=== PATIENT | female | born 1970 | race Caucasian/White ===

== ENCOUNTER → 2020-04-20 16:15 | Outpatient (CLI) | payer SELFPAY ==
[2015-08-10 17:14] VITALS: BMI 25.8
[2020-04-20 17:53] LABS: T4 Free Direct 1.77 ng/dL (0.76-1.46); Thyroid Stim Hormone (TSH) < 0.01 uIU/mL (0.358-3.74)
== END ==
PROVIDERS: PCP Physician Assistant; Referring Provider Otolaryngology; Visit Provider Otolaryngology
DX: E06.9 Thyroiditis, unspecified (principal)
CPT/HCPCS: 36415; 84439; 84443

== ENCOUNTER → 2020-10-04 11:32 | Outpatient (CLI) | payer SELFPAY ==
[2015-08-10 17:14] VITALS: BMI 25.8
[2020-10-07 13:52] LABS: HPV APTIMA, High Risk Negative (Negative)
[2020-10-07 14:23] LABS: HPV Reflexed? YES, CHARGE PATIENT
== END ==
PROVIDERS: PCP Physician Assistant; Visit Provider Student in an Organized Health Care Education/Training Program
DX: Z12.4 Encounter for screening for malignant neoplasm of cervix (principal)
CPT/HCPCS: 87624; 88175; G0145

== ENCOUNTER 2024-12-31 10:57 | Emergency (ER) | payer OTHER, SELFPAY ==
[2024-12-31 10:58] VITALS: BP 195/95; PULSE 100; RESP 16; TEMP 36.2; O2SAT 97; BMI 31.4
--- NOTE | 2024-12-31 11:28 | CT_ITS ---
PROCEDURE: CTA CHEST W/WO CONTRAST 12/31/2024 REASON FOR EXAM: LEFT SIDED CHEST PAIN, ELEVATED DIMER TECHNIQUE: CTA axial imaging of the chest with intravenous contrast. Coronal and Sagittal reconstruction series were provided. 3D, 3D post processing, 3D reconstructions, Maximum intensity projection (MIPs) Volume rendering and Shaded surface rendering was provided. PATIENT PREPARATION: Per protocol CONTRAST: Isovue 3 7 VOLUME: 100 mL One or more dose reduction techniques were used (e.g., Automated exposure control, adjustment of the mA and/or kV according to patient size, use of iterative reconstruction technique). RADIATION DOSE SUMMARY: CTDlvol: 9.5 mGy DLP: 437.53 mGycm . COMPARISON: None FINDINGS: Hardware: None Lymph nodes: None Heart: Unremarkable Thoracic Aorta: No thoracic aortic aneurysm or dissection. Pulmonary Vessels: No pulmonary embolus seen. Lungs and Airways: Mild dependent atelectasis. Pleura: Unremarkable Upper Abdomen: Visualized portions of the upper abdominal viscera are unremarkable. Bones: Degenerative changes of the thoracic spine. CT/CTA Chest W/WO Contrast IMPRESSION: NORMAL CHEST CTA. NO EVIDENCE OF ACUTE PULMONARY EMBOLISM. Reading Location: [place] [id number]
[2024-12-31 11:34] VITALS: O2SAT 96
--- NOTE | 2024-12-31 11:39 | EX.ED.DYSGE1 ---
HPI History of Present Illness Chief Complaint: Abn Labs Informant: patient Narrative Narrative: Patient 54-year-old female with history of sounds like superficial thrombophlebitis of the left leg after vein surgery (in [address] Rogers) presenting with elevated outpatient D-dimer and for further evaluation. Patient notes that for the past 2 months or so she has had intermittent palpitations. Over the past week she has had a sensation of swelling of her left neck, chest and left axilla. She states she feels tight in her left chest. She denies any associated shortness of breath and notes that she has been gardening without any symptoms. Denies any chest pain. Denies any cough or recent illnesses. [place] any fever. Does report decreased appetite. Denies associated numbness or tingling. Denies any nausea or vomiting or abdominal pain. Has had an unintentional weight gain. Denies any swelling of her legs. Does have night sweats but denies any acute change in these. Was seen by nurse practitioner at her PCP office for the symptoms. She states she had normal labs at the end of November (about a month ago) and her thyroid was checked. She had D-dimer, high sensitive troponin checked yesterday and the D-dimer came back elevated at 0.84 and she was sent to the ER for further evaluation. Chart review shows that on December 01 patient had normal fibrinogen, normal iron and ferritin, mildly elevated CRP at 5.63, normal lipoprotein, homocysteine, thyroid levels. I do not see any other labs within the last year. PFSH PFSH Home Medications ?Medication ?Instructions ?Recorded ?Last Taken ?Type docusate sodium 100 mg capsule 100 mg PO BID ##30 08/11/15 Unknown Rx (DOK) ibuprofen 400 mg tablet 800 mg (2 x 400 mg) PO Q8H PRN PRN 08/11/15 Unknown Rx Pain ##40 oxycodone-acetaminophen 5 mg-325 1 - 2 tab PO Q4H PRN PRN Severe 08/11/15 Unknown Rx mg tablet Pain #30 tabs Allergy/AdvReac Type Severity Reaction Status Date / Time Sulfa (Sulfonamide Allergy Hives Verified 12/31/24 10:59 Antibiotics) Social History Smoking Status: Never smoker ROS ROS ED Constitutional Constitutional ED: Reports sweats; Denies chills, fever(s) or weight loss ENT ENT ED: Denies rhinorrhea or sore throat Cardiovascular Cardiovascular: Reports chest pain and palpitations Respiratory/Chest Respiratory/Chest: Denies cough, dyspnea, dyspnea on exertion or sputum Gastrointestinal Gastrointestinal: Denies nausea or vomiting Musculoskeletal Musculoskeletal: Reports neck pain; Denies arthralgias or myalgias Integumentary Denies rash Neurologic Neurologic: Denies headache(s), paresthesias or weakness Psychiatric Psychiatric: Denies anxiety Hematologic/Lymphatic Hematologic/Lymphatic: Denies easy bleeding or easy bruising EXAM Physical Exam Const Vital Signs: 12/31/24 10:58 12/31/24 11:12 12/31/24 11:14 Temperature 97.1 F L Temperature Source Oral Pulse Rate 100 Respiratory Rate 16 Respiratory Effort Normal Non-Labored Normal Non-Labored Respiratory Pattern Normal Blood Pressure 195/95 H Blood Pressure Mean 128 Pulse Ox 97 Oxygen Delivery Method Room Air 12/31/24 11:34 Temperature Temperature Source Pulse Rate Respiratory Rate Respiratory Effort Respiratory Pattern Blood Pressure Blood Pressure Mean Pulse Ox 96 Oxygen Delivery Method Room Air Positive well nourished and well developed General Appearance ED: well developed and NAD HEENT Reports moist mucous membranes Eyes PERRL Neck supple Neck Narrative: Mild tenderness over the left sternocleidomastoid muscle. No significant lymphadenopathy palpated. Lymph Lymphatic Narrative: No significant lymphadenopathy appreciated specifically in the axillary region. Chest Wall inspection of chest normal and palpation of chest normal Resp normal respiratory effort and clear to auscultation bilaterally Cardio regular rate and regular rhythm GI normal to inspection, nondistended, normoactive bowel sounds, non-tender and non-distended Auscultation: normoactive bowel sounds Palpation: soft Extremity normal to inspection Neuro oriented x3 Sensorium / Orientation: alert Psych mental status grossly normal Skin no rashes or lesions noted and no wounds Skin Narrative: No rash noted to the left thorax specifically MDM MDM MDM Narrative Medical decision making narrative: Patient sent to the ER for concern of left-sided chest discomfort and elevated outpatient D-dimer. Outside labs reviewed from yesterday which do show a D-dimer of 0.84. Lab work from last month also reviewed. Differential includes lymphadenopathy, malignancy, pneumonia, viral syndrome, pulmonary blood, pleural effusion. Less likely ACS. Workup including CBC, BMP, high high-sensitivity troponin, coags and BNP obtained as well as CTA of the chest and EKG. Patient's blood pressure upon arrival is elevated but does downtrend without further intervention in the emergency room. Her workup is completely normal with a normal CBC (normal white blood cell count, differential and no anemia). Remainder of her labs are also normal. EKG shows normal sinus rhythm with no acute ischemic changes or strain pattern. CTA of the chest does not show any acute PE or other acute process. Will page out to the patient's PCP to go over results but despite patient continue follow-up outpatient. Discussed with patient the cause of her symptoms is not clear at this time I do think it safe for her to follow-up with her PCP and she does not need to come into the hospital. Patient agreeable with plan of care. Discharged home in stable condition peer Lab Data Attestation: I reviewed the patient's lab results. Labs: Laboratory Results - last 24 hr 12/31/24 11:06 WBC 7.7 RBC 4.46 Hgb 14.0 Hct 40.2 MCV 90.1 MCH 31.4 MCHC 34.8 RDW Std Deviation 39.8 RDW Coeff of Tung 12.1 Plt Count 277 MPV 8.6 Immature Gran % (Auto) 0.500 Neut % (Auto) 65.2 Lymph % (Auto) 27.9 Rankin % (Auto) 4.7 Eos % (Auto) 1.2 Baso % (Auto) 0.5 Absolute Neuts (auto) 5.1 Absolute Lymphs (auto) 2.16 Nucleated RBC % 0 PT 12.4 INR 0.9 APTT 29.5 Sodium 139 Potassium 4.0 Chloride 105 Carbon Dioxide 22.5 Anion Gap 11 BUN 13 Creatinine 0.87 Estim Creat Clear Calc 75.11 Est GFR (MDRD) Non-Af 80 BUN/Creatinine Ratio 15.0 Glucose 99 Calcium 9.1 Troponin T High Sens < 6 NT pro BNP II 57 Radiography Diagnostic Testing: Clinical Impression(s) from Imaging Studies Chest CTA 12/31/24 11:28 IMPRESSION: NORMAL CHEST CTA. NO EVIDENCE OF ACUTE PULMONARY EMBOLISM. Reading Location: [place] [id number] Rhythm Strip Rhythm Strip: Sinus Rhythm Rate: 88 Ectopy: None EKG Initial EKG: Attestation: I personally reviewed and interpreted this EKG as follows: Interpretation: Sinus Rhythm Comments: Normal sinus rhythm rate of 88 bpm Normal axis Normal intervals Normal ST segments Compared to prior EKG on 08/02/2015, patient is no acute ischemic changes Discharge Plan Triage Chief Complaint: Abn Labs ED Provider: Justine Owen Dx/Rx/DC Orders Instructions: ED Chest Pain, Noncardiac Prescriptions: No Action oxycodone-acetaminophen 1 TABLET tablet 1 - 2 tab PO Q4H PRN PRN (Reason: Severe Pain) Qty: 30 0RF Patient Comments: pain ibuprofen 400 MG tablet 800 mg PO Q8H PRN PRN (Reason: Pain) Qty: 40 0RF Patient Comments: pain docusate sodium [DOK] 100 MG capsule 100 mg PO BID Qty: 30 0RF Patient Comments: contipation Primary Care Provider: Staci Lackey Referrals: Staci Lackey PA [Primary Care Provider] - Activity Restrictions/Additional Instructions: Your workup today was normal. The exact cause of your symptoms is not clear but please continue to follow-up outpatient with your primary medical team. There is no signs of a blood clot or more severe pathology on your imaging or blood work today Print Language: Luxembourgish Disposition Disposition: Home, Self Care
[2024-12-31 11:41] LABS: Absolute Lymphocyte Count 2.16 X10^3/uL (0.83-4.51); Absolute Neutrophil Count 5.1 X10^3/uL (2.0-7.7); Basophil# 0.04 X10^3/uL; Basophil% 0.5 % (0-1); Eosinophil# 0.09 X10^3/uL; Eosinophils% 1.2 % (0-5); Hematocrit 40.2 % (37-47); Lymphocyte # 2.16 X10^3/ul (0.83-4.51); Lymphocyte % 27.9 % (19-41); Mean Corp Hgb Conc 34.8 g/dL (32-36); Mean Corpuscular Hgb 31.4 pg (27.0-32.0); Mean Corpuscular Volume 90.1 fL (81-99); Mean Platelet Vol. 8.6 fl (6.2-12.0); Monocyte# 0.36 X10^3/uL; Monocyte% 4.7 % (0-10); NRBC Flagged by Analyzer 0 % (0-5); Neutrophil # 5.05 X10^3/uL (2.7-7.7); Neutrophil % 65.2 % (47-70); Platelet Count 277 K/mm3 (150-450); RBC Distribution Width CV 12.1 % (11.6-14.6); RBC Distribution Width SD 39.8 fl (35.1-43.9); Red Blood Count 4.46 M/mm3 (4.2-5.4); White Blood Count 7.7 K/mm3 (4.4-11.0)
[2024-12-31 11:51] LABS: International Normalized Ratio 0.9; Prothrombin Time (Protime)PT. 12.4 SECONDS (11.7-14.9)
[2024-12-31 11:53] LABS: Partial Thromboplast Time 29.5 Seconds (24.1-36.2)
[2024-12-31 12:05] LABS: Troponin T High Sensitivity < 6 ng/L (<=14)
[2024-12-31 12:08] LABS: Pro- Brain NATRIURETIC PEPTIDE 57 pg/mL (<=900)
[2024-12-31 12:12] LABS: Anion Gap 11 (5-15); BUN 13 mg/dL (4-19); Calcium,Total 9.1 mg/dL (7.6-11.0); Carbon Dioxide 22.5 mmol/L (21.0-32.0); Chloride 105 mmol/L (98-108); Creatinine, Serum 0.87 mg/dL (0.70-1.20); EST Glomerular Filtration Rate 80 (>60); Estimated Creatinine Clearance 75.11 ml/min (50-250); Glucose 99 mg/dL (70-99); Sodium Level 139 mmol/L (133-145)
[2024-12-31 12:57] VITALS: BP 171/90; PULSE 81; RESP 14; O2SAT 94
[2024-12-31 13:21] VITALS: BP 163/87
== END 2024-12-31 13:32 | disposition home or self-care (01) ==
PROVIDERS: Emergency Provider Emergency Medicine; PCP Physician Assistant; Visit Provider Emergency Medicine
DX: R07.89 Other chest pain (principal); R79.1 Abnormal coagulation profile; M54.2 Cervicalgia; R00.2 Palpitations; Z86.72 Personal history of thrombophlebitis
CPT/HCPCS: 71275; 80048; 83880; 84484; 85025; 85610; 85730; 93005; 99284; Q9967